=== PATIENT | male | born 1995 | race African-American/Black ===

== ENCOUNTER 2016-12-29 21:24 | Emergency (ER) | payer OTHER ==
[~2016-12-29] VITALS: Ht 180.3 cm; Wt 83.9 kg
[~2016-12-29 21:24] MED LIST: ALBUTEROL SULF8.5 GM IH; AUGMENTIN875 MG PO; NAPROSYN500 MG PO; PREDNISONE20 MG PO; PREVACID15 MG PO; PROAIR HFA8.5 GM IH; VENTOLIN HFA18 GM IH
[2016-12-30] MEDS ORDERED: VENTOLIN HFA18 GM IH (00:56)
[2016-12-30] MEDS ORDERED: PREDNISONE20 MG PO (00:56)
[2016-12-30] MEDS ORDERED: PROVENTIL,2.5 MG/3 M IH (00:56)
[2016-12-30 01:41] VITALS: BP 120/78
== END 2016-12-30 01:42 | disposition home or self-care (01) ==
LOC: EME 21:24 → RME 21:24
DX: J45.901 Unspecified asthma with (acute) exacerbation (principal); Z87.891 Personal history of nicotine dependence
CPT/HCPCS: 94640; 99281; 99284; J1885; J7512

== ENCOUNTER 2017-03-07 00:37 | Emergency (ER) | payer OTHER ==
[~2017-03-07] VITALS: Ht 177.8 cm; Wt 84.9 kg
[~2017-03-07 00:37] MED LIST changes: +PROVENTIL,2.5 MG/3 M IH
[2017-03-07 02:12] VITALS: BP 124/85
[2017-03-07] MEDS ORDERED: PROAIR HFA8.5 GM IH (02:20)
== END 2017-03-07 02:22 | disposition home or self-care (01) ==
LOC: EME 00:37
DX: H10.9 Unspecified conjunctivitis (principal); J45.909 Unspecified asthma, uncomplicated
CPT/HCPCS: 99281; 99284

== ENCOUNTER 2017-03-28 17:33 | Emergency (ER) | payer OTHER ==
[~2017-03-28] VITALS: Ht 177.8 cm; Wt 84.5 kg
[2017-03-28 18:41] LABS: HEMATOCRIT 46.2 % (38.0-50.0); MCH 29.6 PG (29.0-34.0); MCHC 34.2 G/DL (30.0-36.0); MCV 86.7 FL (86-99); MEAN PLAT.VOLUME 9.9 uM^3 (9.0-12.4); PLATELET COUNT 323 K/uL (156-360); RBC DIS.WIDTH-CV 12.1 % (11.8-14.6); RBC DIS.WIDTH-SD 38.5 % (39-53); RED BLOOD COUNT 5.33 M/uL (4.00-5.50)
[2017-03-28 18:52] LABS: CHLORIDE 108 mEq/L (99-109); POTASSIUM 4.1 mEq/L (3.7-5.4); SODIUM 141 mEq/L (136-147)
[2017-03-28 18:53] LABS: GLUCOSE 90 mg/dL (70-99)
[2017-03-28 18:55] LABS: ANION GAP 10 MEQ/L (2-14)
[2017-03-28 18:57] LABS: GFR ESTIMATE (CALCULATED) > 59 mL/min/
[2017-03-28 18:58] LABS: UREA NITROGEN (BUN) 13 mg/dL (9-23)
[2017-03-28] MEDS ORDERED: PROAIR HFA8.5 GM IH (20:38)
[2017-03-28] MEDS ORDERED: DELTASONE20 M1 PO (20:38)
[2017-03-28 20:43] VITALS: BP 120/70
== END 2017-03-28 20:46 | disposition home or self-care (01) ==
LOC: EME 17:33 → EXP 17:33
DX: J45.21 Mild intermittent asthma with (acute) exacerbation (principal); Z87.19 Personal history of other diseases of the digestive system
CPT/HCPCS: 71020; 80048; 85027; 99281; 99283

== ENCOUNTER 2017-04-08 03:50 | Emergency (ER) | payer OTHER ==
[~2017-04-08] VITALS: Ht 180.3 cm; Wt 86.1 kg
[~2017-04-08 03:50] MED LIST changes: +DELTASONE20 M1 PO
[2017-04-08 03:53] VITALS: BP 116/64
[2017-04-09] MEDS ORDERED: MOTRIN600 MG PO (10:08)
[2017-04-09] MEDS ORDERED: PROAIR RESPICL90 MCG IH (10:08)
[2017-04-09] MEDS ORDERED: ALBUTEROL0.63 MG/3 IH (10:16)
== END 2017-04-08 05:05 | disposition left against medical advice (07) ==
LOC: EME 03:50
DX: J45.909 Unspecified asthma, uncomplicated (principal); Z53.21 Procedure and treatment not carried out due to patient leaving prior to being seen by health care provider

== ENCOUNTER 2017-04-09 07:23 | Emergency (ER) | payer OTHER ==
[2017-04-09 07:32] LABS: BASOPHIL COUNT 0.1 K/uL (0-0.1); EOSINOPHIL (%) 8.8 % (0-5); EOSINOPHIL COUNT 0.7 K/uL (0-0.3); HEMATOCRIT 44.8 % (38.0-50.0); IMMATURE GRANULOCYTE (%) 0.2 % (0.0-0.7); INSTRUMENT ABS NEUTROPHIL CT 3.5 K/uL; LYMPHOCYTE COUNT 3.3 K/uL (1.0-2.8); MCH 29.4 PG (29.0-34.0); MCHC 33.7 G/DL (30.0-36.0); MCV 87.3 FL (86-99); MEAN PLAT.VOLUME 9.8 uM^3 (9.0-12.4); MONOCYTE (%) 6.2 % (3-12); MONOCYTE COUNT 0.5 K/uL (0-0.8); NEUTROPHIL (%) 43.2 % (45-76); NEUTROPHIL COUNT 3.5 K/uL (1.8-6.4); PLATELET COUNT 290 K/uL (156-360); RBC DIS.WIDTH-CV 12.7 % (11.8-14.6); RBC DIS.WIDTH-SD 40.4 % (39-53); RED BLOOD COUNT 5.13 M/uL (4.00-5.50); WHITE BLOOD COUNT 8.2 K/uL (4.1-10.2)
[2017-04-09 07:56] LABS: AMYLASE 78 IU/L (1-118); CHLORIDE 105 mEq/L (99-109); POTASSIUM 4.2 mEq/L (3.7-5.4); SODIUM 138 mEq/L (136-147)
[2017-04-09 07:58] LABS: GLUCOSE 103 mg/dL (70-99)
[2017-04-09 07:59] LABS: ANION GAP 8 MEQ/L (2-14)
[2017-04-09 08:01] LABS: SERUM ETHYL ALCOHOL < 10 mg/dL
[2017-04-09 08:02] LABS: GFR ESTIMATE (CALCULATED) > 59 mL/min/
[2017-04-09 08:05] LABS: LIPASE 14 U/L (1.0-51.0)
[2017-04-09 08:55] LABS: UREA NITROGEN (BUN) 9 mg/dL (9-23)
[2017-04-09 09:58] VITALS: BP 127/81
[2017-04-09] MEDS ORDERED: PROAIR RESPICL90 MCG IH (10:08)
[2017-04-09] MEDS ORDERED: MOTRIN600 MG PO (10:08)
[2017-04-09] MEDS ORDERED: ALBUTEROL0.63 MG/3 IH (10:16)
== END 2017-04-09 10:21 | disposition home or self-care (01) ==
LOC: TRA 07:23
PROVIDERS: Physician Assistant
DX: S16.1XXA Strain of muscle, fascia and tendon at neck level, initial encounter (principal); J45.901 Unspecified asthma with (acute) exacerbation; M54.9 Dorsalgia, unspecified; M25.562 Pain in left knee; M25.561 Pain in right knee; V53.5XXA Driver of pick-up truck or van injured in collision with car, pick-up truck or van in traffic accident, initial encounter; Y92.488 Other paved roadways as the place of occurrence of the external cause
CPT/HCPCS: 70450; 71010; 72125; 72128; 72131; 80048; 81003; 82150; 83690; 85025; 86900; 86901; 94640; 99281; 99285; G0480; J1885; J2270; J2405

== ENCOUNTER 2017-05-11 14:39 | Emergency (ER) | payer OTHER ==
[~2017-05-11] VITALS: Ht 177.8 cm; Wt 84.4 kg
[~2017-05-11 14:39] MED LIST changes: +ALBUTEROL0.63 MG/3 IH; +MOTRIN600 MG PO; +PROAIR RESPICL90 MCG IH
[2017-05-11 15:05] VITALS: BP 126/73
== END 2017-05-11 15:31 | disposition left against medical advice (07) ==
LOC: EME 14:39
DX: R51 Headache (principal); Z53.21 Procedure and treatment not carried out due to patient leaving prior to being seen by health care provider

== ENCOUNTER 2017-06-03 00:20 | Emergency (ER) | payer OTHER ==
[~2017-06-03] VITALS: Ht 180.3 cm; Wt 86.6 kg
[2017-06-03] MEDS ORDERED: LOTRISONE LOTIO30 ML TP (01:16)
[2017-06-03] MEDS ORDERED: KENALOG,ARISTOC80 G1 TP (01:22)
[2017-06-03 01:26] VITALS: BP 127/73
[2017-06-04 12:19] LABS: CHLAMYDIA TRACHOMATIS NEGATIVE; NEISSERIA GONORRHOEAE NEGATIVE
== END 2017-06-03 01:26 | disposition home or self-care (01) ==
LOC: EME 00:20
PROVIDERS: Physician Assistant
DX: L30.9 Dermatitis, unspecified (principal); Z11.3 Encounter for screening for infections with a predominantly sexual mode of transmission; J45.909 Unspecified asthma, uncomplicated; F17.200 Nicotine dependence, unspecified, uncomplicated
CPT/HCPCS: 87491; 87591; 99281; 99283

== ENCOUNTER 2017-07-25 22:12 | Emergency (ER) | payer OTHER ==
[~2017-07-25] VITALS: Ht 180.3 cm; Wt 88.0 kg
[~2017-07-25 22:12] MED LIST changes: +KENALOG,ARISTOC80 G1 TP; +LOTRISONE LOTIO30 ML TP
[2017-07-26] MEDS ORDERED: PREDNISONE20 MG PO (01:09)
[2017-07-26] MEDS ORDERED: PROAIR HFA8.5 GM IH (01:11)
[2017-07-26 01:27] VITALS: BP 132/70
== END 2017-07-26 01:31 | disposition home or self-care (01) ==
LOC: EME 22:12
DX: J45.901 Unspecified asthma with (acute) exacerbation (principal); R03.0 Elevated blood-pressure reading, without diagnosis of hypertension; F17.200 Nicotine dependence, unspecified, uncomplicated; Z71.6 Tobacco abuse counseling
CPT/HCPCS: 94640; 99281; 99283; J7512

== ENCOUNTER 2017-08-20 21:36 | Emergency (ER) | payer OTHER ==
[~2017-08-20] VITALS: Ht 177.8 cm; Wt 88.3 kg
[2017-08-20] MEDS ORDERED: KENALOG,ARISTOC80 GM TP (22:33)
[2017-08-20] MEDS ORDERED: PREDNISONE20 MG PO (22:33)
[2017-08-20 22:43] LABS: ADD MIUA? NO; BILIRUBIN NEGATIVE; BLOOD NEGATIVE; COLOR YELLOW ((YELLOW)); GLUCOSE (STRIP) NEGATIVE; KETONES NEGATIVE; LEUKOCYTES NEGATIVE; NITRITE NEGATIVE; PROTEIN (STRIP) NEGATIVE; SPECIFIC GRAVITY 1.018 (1.000-1.030)
[2017-08-20 23:24] VITALS: BP 148/68
[2017-08-22 13:08] LABS: CHLAMYDIA TRACHOMATIS NEGATIVE; NEISSERIA GONORRHOEAE NEGATIVE
== END 2017-08-20 23:24 | disposition home or self-care (01) ==
LOC: EME 21:36
PROVIDERS: Physician Assistant
DX: Z20.2 Contact with and (suspected) exposure to infections with a predominantly sexual mode of transmission (principal); J45.909 Unspecified asthma, uncomplicated; L30.9 Dermatitis, unspecified
CPT/HCPCS: 81003; 87491; 87591; 99281; 99284; J0696; J7512

== ENCOUNTER 2018-01-18 13:21 | Emergency (ER) | payer OTHER ==
[~2018-01-18] VITALS: Ht 177.8 cm; Wt 92.4 kg
[~2018-01-18 13:21] MED LIST changes: +KENALOG,ARISTOC80 GM TP
[2018-01-18] MEDS ORDERED: PREDNISONE20 MG PO (13:37)
[2018-01-18] MEDS ORDERED: VENTOLIN HFA18 GM IH (13:37)
[2018-01-18] MEDS ORDERED: CLARITIN,ALAVAR10 MG PO (13:41)
[2018-01-18] MEDS ORDERED: PROVENTIL,2.5 MG/3 M IH (14:13)
[2018-01-18 14:16] VITALS: BP 128/78
== END 2018-01-18 14:17 | disposition home or self-care (01) ==
LOC: EME 13:21 → RME 13:21
DX: J45.901 Unspecified asthma with (acute) exacerbation (principal); J30.2 Other seasonal allergic rhinitis
CPT/HCPCS: 94640; 99281; 99284; J7512

== ENCOUNTER 2018-02-15 12:24 | Emergency (ER) | payer OTHER ==
[~2018-02-15] VITALS: Ht 175.3 cm; Wt 92.2 kg
[~2018-02-15 12:24] MED LIST changes: +CLARITIN,ALAVAR10 MG PO
[2018-02-15] MEDS ORDERED: PREDNISONE20 MG PO (12:49)
[2018-02-15] MEDS ORDERED: VENTOLIN HFA18 GM IH (12:49)
[2018-02-15 12:57] VITALS: BP 131/64
== END 2018-02-15 13:02 | disposition home or self-care (01) ==
LOC: EME 12:24
DX: J45.901 Unspecified asthma with (acute) exacerbation (principal); Z76.0 Encounter for issue of repeat prescription; Z91.010 Allergy to peanuts; Z91.018 Allergy to other foods
CPT/HCPCS: 99281; 99283

== ENCOUNTER 2018-04-08 22:18 | Emergency (ER) | payer OTHER ==
[~2018-04-08] VITALS: Ht 177.8 cm; Wt 93.8 kg
[2018-04-09] MEDS ORDERED: PROVENTIL,2.5 MG/3 M IH (00:31)
[2018-04-09] MEDS ORDERED: PROVENTIL HFA6.7 GM IH (00:31)
[2018-04-09] MEDS ORDERED: KENALOG,ARISTOC80 GM TP (00:31)
[2018-04-09 01:04] VITALS: BP 121/76
== END 2018-04-09 01:07 | disposition home or self-care (01) ==
LOC: EME 22:18
DX: J45.901 Unspecified asthma with (acute) exacerbation (principal); L30.9 Dermatitis, unspecified; Z87.891 Personal history of nicotine dependence
CPT/HCPCS: 94640; 99281; 99284; J1100